=== PATIENT | male | born 1970 | race Caucasian/White ===

== ENCOUNTER 2017-04-03 22:38 | Emergency (ER) | payer OTHER ==
[~2017-04-03] VITALS: Ht 185.4 cm; Wt 103.0 kg
[2017-04-03 22:38] VITALS: BP_SYST 137
--- NOTE | 2017-04-03 23:40 | NUR ---
Patient to bed 7 to await MD evaluation. Patient is awake, alert and oriented. C/o right leg pain, seen at urgent care yesterday for same complaint.
--- NOTE | 2017-04-03 23:42 | NUR ---
Patient with c/o right lower leg pain, seen at urgent care yesterday for same complaint. Patient with red area to right mccann, able to ambulate without difficulty with slow, steady gait. Will continue to observe and assess
--- NOTE | 2017-04-03 23:42 | NUR ---
Awaiting MD lee
--- NOTE | 2017-04-04 00:20 | NUR ---
Awaiting evaluation by ER MD, will continue to observe and assess.
--- NOTE | 2017-04-04 00:29 | NUR ---
SHAHNAZ Guillory at bedside examining patient.
[2017-04-04 00:44] VITALS: BP_SYST 130
--- NOTE | 2017-04-04 00:46 | NUR ---
Patient given written and verbal discharge instructions and verbalizes understanding. ER MD discussed with patient the results and treatment provided. Patient in stable condition. ID arm band removed. Rx of Flexeril given. Patient educated on pain management and to follow up with PMD. Pain Scale 3. Opportunity for questions provided and answered.
== END 2017-04-04 00:44 | disposition home or self-care (01) ==
LOC: SED 22:38
DX: S80.11XA Contusion of right lower leg, initial encounter (principal); F41.9 Anxiety disorder, unspecified; F32.9 Major depressive disorder, single episode, unspecified; X58.XXXA Exposure to other specified factors, initial encounter; Y93.89 Activity, other specified; Y92.89 Other specified places as the place of occurrence of the external cause; Y99.8 Other external cause status
CPT/HCPCS: 99283